=== PATIENT | female | born 1970 | race Caucasian/White ===

== ENCOUNTER → 2018-12-04 12:52 | Outpatient (CLI) | payer OTHER, SELFPAY ==
--- NOTE | 2018-12-04 12:54 | DI.RAD.S_ITS ---
PROCEDURE: XR RIBS RT MIN 3V W CXR 1V INDICATIONS: rib pain TECHNIQUE: 2 views of the right ribs were acquired, along with a single view chest. COMPARISON: None. FINDINGS: Surgical changes and devices: None. Bones and chest wall: Mildly displaced right fractures fourth, fifth and sixth rib fractures are noted. No suspicious bony lesions. Overlying soft tissues appear unremarkable. Lungs and pleura: No pleural effusions or pneumothorax. Lungs appear clear. Mediastinum: Mediastinal contours appear normal. Heart size is normal. IMPRESSION: Right fourth, fifth, and sixth rib fractures. Dictated by: Andrew Ye M.D. on 12/04/2018 at 13:27 Approved by: Andrew Ye M.D. on 12/04/2018 at 13:29
== END ==
PROVIDERS: Visit Provider Physician Assistant
DX: S22.41XA Multiple fractures of ribs, right side, initial encounter for closed fracture (principal); R07.81 Pleurodynia; W19.XXXA Unspecified fall, initial encounter
CPT/HCPCS: 71101

== ENCOUNTER 2018-12-08 02:04 | Emergency (ER) | payer OTHER, SELFPAY ==
--- NOTE | 2018-12-08 02:09 | ED.URI ---
HPI - URI/Sore Throat General Chief Complaint: Chest Pain Stated Complaint: Trouble Breathing Time Seen by Provider: 12/08/18 02:05 Source: patient and family Mode of arrival: ambulatory Limitations: no limitations History of Present Illness HPI Narrative: 48-year-old female nonsmoker history of anxiety, depression and gastric bypasspresents with nasal congestion, runny nose and cough with increasing pain in the setting of known rib fractures from a mechanical fall a few days ago. She tripped over her dog on Friday and landed on her right-sided ribs. She was seen at the walk-in clinic and had chest x-ray confirming 3 rib fractures. She denies any fever chills nor nausea or vomiting. She has a mild headache and denies sore throat or myalgias. Her rib pain has been worsening in the setting of this cough MD Complaint: cough Onset (ago): day(s) Duration: constant Severity: severe Exacerbating factors: nothing Able to tolerate fluids by mouth: Yes Related Data Home Medications Medication Instructions Recorded Confirmed albuterol sulfate [Proventil HFA] 2 puff INH PRN #8.5 gm 03/26/13 12/04/18 levothyroxine [Synthroid] 50 mcg PO QDAY #0 03/26/13 12/04/18 alprazolam 0.5 mg tablet 0.5 mg PO ONCE PRN tab 12/04/18 12/04/18 beclomethasone diprop 40 1 puff INHALATION Q12H 12/04/18 12/04/18 mcg/actuation HFA breath activated aerosol buspirone 7.5 mg tablet 7.5 mg PO BID 12/04/18 12/04/18 Previous Rx's Medication Instructions Recorded levalbuterol HCl [Xopenex] 1.25 mg INH Q6HP PRN #15 ea 09/10/16 citalopram [Celexa] 40 mg PO QDAY #90 tab 06/13/17 hydrocodone 5 mg-acetaminophen 325 1 tab PO Q4-6H PRN #30 tab 12/04/18 mg tablet benzonatate [Tessalon Perles] 100 mg PO TID PRN #14 cap 12/08/18 oxycodone 5 mg PO Q4-6H PRN #20 tab 12/08/18 Allergies Allergy/AdvReac Type Severity Reaction Status Date / Time Penicillins Allergy Severe Hives Verified 12/08/18 02:10 NSAIDS (Non-Steroidal AdvReac Mild Verified 12/08/18 02:10 Anti-Inflamma Review of Systems Review of Systems ROS Unobtainable: All systems reviewed & are unremarkable except as noted in HPI and below Constitutional Denies chills, Denies fever(s), Denies lethargy and Denies weakness Eyes Denies change in vision, Denies eye discharge, Denies irritation and Denies loss of vision ENT Ears, Nose, Mouth, and Throat: Denies change in voice, Denies neck pain and Denies sore throat Cardiovascular Reports chest pain, Denies irregular heart rhythm, Denies lightheadedness, Denies palpitations, Denies dyspnea, Denies dyspnea on exertion and Denies orthopnea Respiratory Reports cough, Reports pain on inspiration, Reports pain with cough, Denies dyspnea, Denies dyspnea on exertion and Denies wheezing Gastrointestinal Gastrointestinal: Denies abdominal pain, Denies change in bowel habits, Denies diarrhea, Denies nausea and Denies vomiting Genitourinary Denies hematuria, Denies flank pain, Denies urinary incontinence and Denies urinary urgency Musculoskeletal Denies neck pain Integumentary/Breasts Denies pruritus, Denies erythema, Denies rash and Denies wounds Neurologic Denies confusion, Denies loss of vision and Denies weakness Psychiatric Denies anxiety, Denies confusion, Denies depression, Denies homicidal ideation and Denies suicidal ideation Endocrine Denies palpitations Hematologic/Lymphatic Denies easy bruising Allergic/Immunologic Denies wheezing PFSH Social History Smoking Status: Never smoker Social History Smoking Status: Never smoker Exam Narrative Exam Narrative: GENERAL: 48-year-old female appears stated age, obviously in a significant amount of pain the leg, frequently coughing HEAD: Atraumatic. Normocephalic. No temporal or scalp tenderness. EYES: Pupils equal round and reactive. Extraocular motions intact. No scleral icterus. No injection or drainage. ENT: Nose without bleeding, purulent drainage or septal hematoma. Throat without erythema, tonsillar hypertrophy or exudate. Uvula midline. Airway patent. NECK: Trachea midline. No JVD or lymphadenopathy. Supple, nontender, no meningeal signs. CARDIOVASCULAR: Regular rate and rhythm without murmurs, gallops, or rubs. RESPIRATORY: Clear to auscultation. Breath sounds equal bilaterally. No wheezes, rales, or rhonchi. severe tenderness to palpation on right mid lateral ribs GASTROINTESTINAL: Abdomen soft, non-tender, nondistended. No hepato-splenomegaly, or palpable masses. No guarding. EXTREMITIES: No clubbing, cyanosis, or edema. No joint tenderness, effusion, or edema noted. BACK: Nontender without deformity or crepitance. No flank tenderness. NEURO: AOx3. SKIN: No rash or erythema. Initial Vital Signs Initial Vital Signs: Vital Signs Temperature 98.7 F 12/08/18 02:11 Pulse Rate 67 12/08/18 02:11 Respiratory Rate 20 12/08/18 02:11 Blood Pressure 130/73 12/08/18 02:11 Pulse Oximetry 100 12/08/18 02:11 Course Orders Ordered: ED Orders 12/08/18 02:19 XR chest 2V Stat 12/08/18 02:35 Influenza A and B by PCR Rapid Stat Discontinued Medications Ketorolac Tromethamine (Toradol) 60 mg IM NOW ONE Stop: 12/08/18 02:19 Last Admin: 12/08/18 02:23 Dose: 60 mg Oxycodone/Acetaminophen (Endocet 5/325 Prepack) 1 bottle MISC SEEINSTR ONE Stop: 12/08/18 03:18 Vital Signs - 8 hr 12/08/18 02:11 Temperature 98.7 F Pulse Rate 67 Respiratory Rate 20 Blood Pressure 130/73 Pulse Oximetry 100 MDM - URI/Sore Throat Differential Diagnosis Differential diagnosis: Likely influenza Lab Data Lab Results 12/08/18 Range/Units 02:35 Influenza A & B (PCR) Positive, type a A (Negative) Discharge Plan Departure Patient Disposition: Home Clinical Impression: Influenza A Multiple rib fractures Qualifiers: Encounter type: subsequent encounter Fracture type: closed Laterality: right Fracture healing: with routine healing Qualified Code(s): S22.41XD - Multiple fractures of ribs, right side, subsequent encounter for fracture with routine healing Instructions: DI for Rib Fracture, DI for Influenza -- Adult Activity Restrictions/Additional Instructions: *You have been diagnosed with [ the multiple right-sided rib fractures ] *What to do: *Take medications as directed. Your prescription has been sent to [facility] in [place] at your request *Follow up with your primary care provider in 2-3 days, call for an appointment. Let them know you were seen in the Emergency Department and that we ask that you be seen in follow up *Return to ER if you should have any new, worsening or concerning symptoms You have been prescribed narcotic medications. While on these medications you cannot drive or operate heavy machinery. Additionally you cannot sign legal documents or perform any duties such as this. 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 Please understand that we cannot provide further refills of narcotics or controlled substances through the ED and your pain management will need to be through your Primary Care Provider Prescriptions: New benzonatate [Tessalon Perles] 100 mg capsule 100 mg PO TID PRN (Reason: cough) Qty: 14 RF: 0 oxycodone 5 mg tablet 5 mg PO Q4-6H PRN (Reason: pain) Qty: 20 RF: 0 No Action alprazolam 0.5 mg tablet 0.5 mg PO ONCE PRNRF: 0 buspirone 7.5 mg tablet 7.5 mg PO BID RF: 0 Qvar RediHaler 40 mcg/actuation HFA aerosol breath activated 1 puff INHALATION Q12H RF: 0 hydrocodone-acetaminophen [Edelstein] 5-325 mg tablet 1 tab PO Q4-6H PRN (Reason: rib pain) Qty: 30 RF: 0 levothyroxine [Synthroid] 50 MCG tablet 50 mcg PO QDAY Qty: 0 RF: 0 albuterol sulfate [Proventil HFA] 90 MCG/PUFF HFA aerosol inhaler 2 puff INH PRN Qty: 8.5 RF: 0 levalbuterol HCl [Xopenex] 1.25 MG/3 ML solution for nebulization 1.25 mg INH Q6HP PRNQty: 15 RF: 0 citalopram [Celexa] 40 MG tablet 40 mg PO QDAY Qty: 90 RF: 2 Stand Alone Forms: Work Release Note
[2018-12-08 02:11] VITALS: BP 130/73; PULSE 67; RESP 20; TEMP 37.1; O2SAT 100; BMI 28.5
--- NOTE | 2018-12-08 02:19 | DI.RAD.S_ITS ---
PROCEDURE: XR CHEST 2V INDICATIONS: Shortness of breath, cough TECHNIQUE: 2 views of the chest were acquired. COMPARISON: None. FINDINGS: Surgical changes and devices: Multiple surgical clips at the GE junction.. Lungs and pleura: Diffusely coarse interstitial markings. Lungs are otherwise clear. No pleural effusions or pneumothorax. Mediastinum: Mediastinal contours are normal. Heart size is normal. Bones and chest wall: No suspicious bony abnormalities. Soft tissues appear unremarkable. IMPRESSION: Changes of mild emphysema. No focal pneumonia. Dictated by: Sona Hart M.D. on 12/08/2018 at 8:27 Approved by: Sona Hart M.D. on 12/08/2018 at 8:28
[2018-12-08] MEDS: KETOROLAC 60 MG/2 ML VIAL IM (02:23)
[2018-12-08] MEDS: OXYCODONE/APAP 5/325 PREPACK 1 BOTTLE MISC (03:27)
[2018-12-08 03:35] VITALS: BP 103/52; PULSE 64; RESP 16; TEMP 37.1; O2SAT 97
== END 2018-12-08 03:39 | disposition home or self-care (01) ==
PROVIDERS: Emergency Provider Emergency Medicine
DX: J10.1 Influenza due to other identified influenza virus with other respiratory manifestations (principal); S22.49XD Multiple fractures of ribs, unspecified side, subsequent encounter for fracture with routine healing
CPT/HCPCS: 71046; 87400; 99282; 99283; J1885

== ENCOUNTER 2019-05-28 09:14 | Emergency (ER) | payer OTHER, SELFPAY ==
[2019-05-28 09:15] VITALS: BP 139/71; PULSE 83; RESP 18; TEMP 36.8; O2SAT 100; BMI 30.5
[2019-05-28 10:00] VITALS: BP 105/52; PULSE 51; RESP 14; O2SAT 100
--- NOTE | 2019-05-28 11:31 | ED.RECABL ---
HPI - Recheck/Abnormal Lab/Rx <Sylvia ZhuARYAN - Last Filed: 05/28/19 23:34> General Chief Complaint: Recheck/Abnormal Lab/Rx Stated Complaint: concern about care recieve at [facility] Time Seen by Provider: 05/28/19 10:58 Source: patient Mode of arrival: ambulatory Limitations: no limitations History of Present Illness HPI narrative: 49-year-old female with a history of anxiety, depression, hypothyroidism, was recently seen at [facility] on 05/26/19 for the same, presents emergency department today complaining increased fatigue, intermittent confusion, ?brain fussiness, occasional forgetfulness, for the past 2 days after a recent fall. She states 2 days ago she slipped and fell backwards down 8 steps hitting her head against the wall, she denies LOC. She also complains of a constant 8/10 diffuse headache that is better when she takes oxycodone which he was given at [facility]. She states she does not remember much of the fall or much of the hospital visit but remembers having her roommate take her to [facility] where she received a CT scan of her head and neck as well as an x-ray of her right wrist and celia in her scalp. She states that she thinks she has a concussion but was not told the at that time. Denies any vision changes, hearing changes, facial droop, difficulty swallowing, vomiting, chest pain, shortness of breath, difficulty walking, or progressive worsening memory loss. She also states she has an appointment with her primary care provide next for follow-up. Related Data Home Medications Medication Instructions Recorded Confirmed levothyroxine [Synthroid] 50 mcg PO DAILY #0 03/26/13 05/28/19 buspirone 7.5 mg tablet 7.5 mg PO TID 12/04/18 05/28/19 alprazolam 0.5 - 1 mg PO DAILY PRN 05/28/19 05/28/19 citalopram [Celexa] 40 mg PO DAILY 05/28/19 05/28/19 ferrous sulfate 325 mg PO DAILY 05/28/19 05/28/19 oxycodone-acetaminophen 1 tab PO Q6-8H PRN 05/28/19 05/28/19 temazepam 30 mg PO BEDTIME PRN 05/28/19 05/28/19 Previous Rx's Medication Instructions Recorded oxycodone-acetaminophen 1 tab PO Q4-6H PRN #5 tab 05/28/19 Allergies Allergy/AdvReac Type Severity Reaction Status Date / Time Penicillins Allergy Severe Hives Verified 05/28/19 09:44 NSAIDS (Non-Steroidal AdvReac Mild Verified 05/28/19 09:44 Anti-Inflamma Review of Systems <ARYAN Soto - Last Filed: 05/28/19 23:34> Review of Systems Narrative: REVIEW OF SYSTEMS: GENERAL: Denies fever, chills, malaise, or wt. loss. HENT: No head trauma, hearing loss, rhinorrhea, epistaxis, sinus pressure, sore throat, or dysphagia. EYES: No loss of vision, double vision, eye pain, or irritation. CARDIOVASCULAR: No chest pain, palpitations, edema, syncope, or orthopnea. RESPIRATORY: No shortness of breath, cough, or wheeze. GASTROINTESTINAL: No change in appetite, nausea, vomiting, stool changes, or melena. GENITOURINARY: No flank pain, urinary incontinence, hesitancy, frequency, or dysuria. No vaginal discharge or dyspareunia. MUSCULOSKELETAL: No pain, weakness, or deformities. INTEGUMENTARY: No rash, lesions, or pruritus. NEURO: No numbness, or tingling. Patient reports headaches and memory loss, see HPI. PSYCH: No behavior or mood changes. HEMATOLOGY: No easy bruising. LYMPHATIC: No lymphadenopathy. PFSH <ARYAN Soto - Last Filed: 05/28/19 23:34> Medical History Generalized anxiety disorder (Acute) Social History Smoking Status: Never smoker Social History Smoking Status: Never smoker Exam <ARYAN Soto - Last Filed: 05/28/19 23:34> Initial Vital Signs Initial Vital Signs: Vital Signs Temperature 98.2 F 05/28/19 09:15 Pulse Rate 83 05/28/19 09:15 Respiratory Rate 18 05/28/19 09:15 Blood Pressure 139/71 05/28/19 09:15 Pulse Oximetry 100 05/28/19 09:15 PHYSICAL EXAMINATION: GENERAL: Well groomed, alert, and cooperative Answers questions promptly and appropriately. Vital signs noted. HENT: Normocephalic, atraumatic. [place] visualized to left side of parietal scalp, no erythema present. Right-sided hematoma present, tenderness with palpation. Oral mucosa is pink and moist, no caries or lesions present. Pharynx without erythema. EYES: PERRLA, EOMIs, conjunctiva pink, sclera white, no periorbital swelling. NECK: Full range of motion, nontender. LYMPH: No lymphadenopathy. CHEST: Normal to inspection and without deformities. CARDIOVASCULAR: S1 and S2 sounds normal. Regular rate and rhythm, no murmurs, clicks, or bruits. No pedal edema. RESPIRATORY: Normal respiratory rate, trachea midline, airway patent. No stridor, nasal flaring or accessory muscle use. Lungs are clear in all fall without wheeze, rhonchi, or crackles. GASTROINTESTINAL: Bowel sounds normoactive. Abdomen is soft and non-tender. No organomegaly. MUSCULOSKELETAL: Normal gait and coordination. Equal tone and mass bilaterally. No spinal tenderness or deformities. EXTREMITIES: CMS intact. Full range of motion and 5/5 strength to upper and lower extremities SKIN: Warm, dry, soft, appropriate color for ethnicity. No lesions, rashes, or wounds. NEURO: Alert and Oriented X 3. CN III-XII intact. Good coordination. No ataxia, or sensory deficits, or cognitive issues. PSYCH: Appropriate affect and mood. <Reena Patiño MD - Last Filed: 05/31/19 00:51> Initial Vital Signs Initial Vital Signs: Vital Signs Temperature 98.2 F 05/28/19 09:15 Pulse Rate 83 05/28/19 09:15 Respiratory Rate 18 05/28/19 09:15 Blood Pressure 139/71 05/28/19 09:15 Pulse Oximetry 100 05/28/19 09:15 Scores <ARYAN Soto - Last Filed: 05/28/19 23:34> NIH Stroke Scale Level of Conciousness: Alert, keenly responsive Ask month/age: Answers both questions correctly. Open/close eyes, close hand: Performs both tasks correctly Best gaze horizontal: Normal Visual fall: No visual loss Facial palsy: Normal symetrical movement Left arm drift: No drift for full 10 sec Right arm drift: No drift for full 10 sec Left leg drift: No drift for full 10 sec Right leg drift: No drift for full 10 sec Limb ataxia: Absent Sensory on face/arms/legs: Normal, no sensory loss Best language: No aphasia, normal Dysarthria: Normal Extinction or inattention: No abnormality Total NIH Stroke scale score: 0 Course <ARYAN Soto - Last Filed: 05/28/19 23:34> Course Course Narrative: Records were reviewed from [facility] for patient's emergency department visit on 05/26/19. Record reports were as follows: CT head impression: Mild chronic sinus disease. Otherwise, normal CT of the brain without contrast. CT cervical spine without contrast impression: No acute cervical spine abnormality. Degenerative disc disease, especially C5-C6, with mild left foraminal stenosis. Right wrist x-ray impression: No acute fracture or dislocation seen. There appears to be resection of trapezium. During the visit patient's neuro exam was noted to be intact without deficiencies. Celia were placed to the wound in her scalp. She was given oxycodone and instructed to follow up with her primary care provider in 7-10 days. She was diagnosed with a fall, scalp laceration, and sprain of the right wrist. Orders Ordered: Discontinued Medications Sodium Chloride (Normal Saline 0.9%) 1,000 mls @ 1,000 mls/hr IV BOLUS ONE Stop: 05/28/19 11:24 Last Admin: 05/28/19 10:27 Dose: Not Given Documented by: MAGALY Ketorolac Tromethamine (Toradol) 30 mg IM NOW ONE Stop: 05/28/19 11:29 Last Admin: 05/28/19 11:37 Dose: 30 mg Documented by: ONEL Vital Signs Vital signs: Vital Signs - 8 hr 05/28/19 09:15 05/28/19 10:00 05/28/19 12:08 Temperature 98.2 F Pulse Rate 83 51 L 64 Respiratory Rate 18 14 16 Blood Pressure 139/71 Blood Pressure [Left Arm] 105/52 L 98/48 L Pulse Oximetry 100 100 100 <Reena Patiño MD - Last Filed: 05/31/19 00:51> Orders Ordered: Discontinued Medications Sodium Chloride (Normal Saline 0.9%) 1,000 mls @ 1,000 mls/hr IV BOLUS ONE Stop: 05/28/19 11:24 Last Admin: 05/28/19 10:27 Dose: Not Given Documented by: MAGALY Ketorolac Tromethamine (Toradol) 30 mg IM NOW ONE Stop: 05/28/19 11:29 Last Admin: 05/28/19 11:37 Dose: 30 mg Documented by: ONEL Vital Signs Vital signs: Vital Signs - 8 hr 05/28/19 09:15 05/28/19 10:00 05/28/19 12:08 Temperature 98.2 F Pulse Rate 83 51 L 64 Respiratory Rate 18 14 16 Blood Pressure 139/71 Blood Pressure [Left Arm] 105/52 L 98/48 L Pulse Oximetry 100 100 100 MDM - Recheck/Abnormal Lab/Rx <ARYAN Soto - Last Filed: 05/28/19 23:34> Medical Records Attestation: I reviewed the patient's medical records. Lab Data Attestation: I reviewed the patient's lab results. MDM Narrative Medical decision making narrative: Differential includes concussion (most likely due to symptoms and mechanism of fall), cranial hemorrhage (less likely due to negative CT that was done 2 days ago, patient reports slow but progressive resolution of symptoms), alteration mental status due to narcotic (patient has been taking oxycodone for her headaches), stroke/TIA (less likely due to recent injury, and NIH score of 0, lack of concerning symptoms such as facial droop or complains of numbness). Strict return precautions given and follow-up instructions discussed. Discharge Plan Departure Patient Disposition: Home Clinical Impression: Concussion Qualifiers: Encounter type: subsequent encounter Loss of consciousness presence/duration: without LOC Qualified Code(s): S06.0X0D - Concussion without loss of consciousness, subsequent encounter Fall Qualifiers: Encounter type: initial encounter Qualified Code(s): W19.XXXA - Unspecified fall, initial encounter Discharge Date/Time: 05/28/19 12:21 Instructions: DI for Concussion, How to Prevent Falls Activity Restrictions/Additional Instructions: Your neurological exam was negative for any concerning findings. However, it appears that you are suffering from a concussion from your fall. I reviewed your records from [facility] and the CT scans of your head and neck did not show any fractures or bleeding in the brain Additionally, your right wrist x-ray was negative for fractures. I recommend brain rest for the next week (meaning no rigorous activity, minute amount of television, and cessation of activities that provoke symptoms). Please follow up with your primary care provider as scheduled on for removal of your celia and for recheck of her symptoms. I have given you a small amount of pain medication, please do not take this longer than you need as it can contribute to your symptoms. Return to the emergency department if he develops uncontrollable vomiting, facial droop, vision changes, difficulty swallowing, slurred speech, loss of consciousness, sudden and extreme a new headaches, chest pain, or shortness of breath. Prescriptions: New oxycodone-acetaminophen 5-325 mg tablet 1 tab PO Q4-6H PRN (Reason: pain) Qty: 5 RF: 0 No Action buspirone 7.5 mg tablet 7.5 mg PO TID RF: 0 levothyroxine [Synthroid] 50 MCG tablet 50 mcg PO DAILY Qty: 0 RF: 0 alprazolam 0.5 mg tablet 0.5 - 1 mg PO DAILY PRN (Reason: Anxiety) RF: 0 oxycodone-acetaminophen 5-325 mg tablet 1 tab PO Q6-8H PRN (Reason: pain) RF: 0 temazepam 30 mg capsule 30 mg PO BEDTIME PRN (Reason: Sleep) RF: 0 ferrous sulfate 325 mg (65 mg iron) tablet 325 mg PO DAILY RF: 0 citalopram [Celexa] 40 MG tablet 40 mg PO DAILY RF: 0 Referrals: Octavio Johnson MD [Primary Care Provider] - Stand Alone Forms: Work Release Note
[2019-05-28] MEDS: KETOROLAC 60 MG/2 ML VIAL 30 MG IM (11:37)
[2019-05-28 12:08] VITALS: BP 98/48; PULSE 64; RESP 16; O2SAT 100
== END 2019-05-28 12:21 | disposition home or self-care (01) ==
PROVIDERS: Emergency Provider Nurse Practitioner; PCP Internal Medicine
DX: S06.0X0D Concussion without loss of consciousness, subsequent encounter (principal); W19.XXXA Unspecified fall, initial encounter
CPT/HCPCS: 96372; 99282; 99283; J1885

== ENCOUNTER 2020-03-01 13:16 | Emergency (ER) | payer OTHER, SELFPAY ==
[2020-03-01 13:20] VITALS: BP 129/57; PULSE 76; RESP 18; O2SAT 97
[2020-03-01 13:25] VITALS: BP 129/57; PULSE 76; RESP 16; TEMP 36.6; O2SAT 99
[2020-03-01 13:32] VITALS: BP 129/57; PULSE 77; RESP 20; O2SAT 98; BMI 28.3
--- NOTE | 2020-03-01 14:03 | ED_ITS ---
HPI - Extremity Injury (Lower) <Sylvia ZhuARYAN - Last Filed: 03/01/20 21:22> General Chief Complaint: Extremity Injury, Lower Stated Complaint: left knee injury x9 days Time Seen by Provider: 03/01/20 13:21 Source: patient Mode of arrival: Ambulatory History of Present Illness HPI Narrative: 50-year-old female with a history of knee osteoarthritis presents emergency department complaining of left medial knee pain. She states she was hiking approximately 9 days ago after the hike she developed worsening left- sided knee pain and swelling. Patient states that she gets steroid injections in urine use as well as her SI joint for arthritis which have helped. She does not remember falling or twisting the knee, does not remember any specific incident that caused an increase in pain other than her knee started to hurt later on that day after her. Patient states the pain is a sharp stabbing pain that is worse with weight-bearing and palpation to the medial aspect of the joint, reports a small amount of swelling without redness or significant erythema. Patient states she is able to bend her knee but has been backed partial weight-bearing due to the pain. Patient denies any other injuries such as head injury, neck pain, hip pain, ankle pain, calf pain, history of blood clots, nausea, vomiting, diarrhea, or any other concerns. Related Data Home Medications Medication Instructions Recorded Confirmed levothyroxine [Synthroid] 50 mcg PO DAILY #0 03/26/13 05/28/19 buspirone 7.5 mg tablet 7.5 mg PO TID 12/04/18 05/28/19 alprazolam 0.5 - 1 mg PO DAILY PRN 05/28/19 05/28/19 citalopram [Celexa] 40 mg PO DAILY 05/28/19 05/28/19 ferrous sulfate 325 mg PO DAILY 05/28/19 05/28/19 oxycodone-acetaminophen 1 tab PO Q6-8H PRN 05/28/19 05/28/19 temazepam 30 mg PO BEDTIME PRN 05/28/19 05/28/19 Previous Rx's Medication Instructions Recorded oxycodone-acetaminophen 1 tab PO Q4-6H PRN #5 tab 05/28/19 Allergies Allergy/AdvReac Type Severity Reaction Status Date / Time Penicillins Allergy Severe Hives Verified 03/01/20 13:40 NSAIDS (Non-Steroidal AdvReac Mild Verified 03/01/20 13:40 Anti-Inflamma Review of Systems <ARYAN Soto - Last Filed: 03/01/20 21:22> Review of Systems Narrative: REVIEW OF SYSTEMS: GENERAL: Denies fever or chills. HENT: No head trauma. EYES: No double vision or vision loss. CARDIOVASCULAR: No chest pain or syncope. RESPIRATORY: No shortness of breath or cough. GASTROINTESTINAL: No nausea, vomiting, diarrhea, or constipation. GENITOURINARY: No flank pain or dysuria. MUSCULOSKELETAL: Complains of left knee pain, see HPI. INTEGUMENTARY: No rash, lesions, or pruritus. NEURO: No numbness, tingling. Patient History <ARYAN Soto - Last Filed: 03/01/20 21:22> Medical History Generalized anxiety disorder (Acute) Social History Smoking Status: Never smoker Smoking Status: Never smoker alcohol intake frequency: 0-2 drinks per day Substance Use Type: does not use Exam <ARYAN Soto - Last Filed: 03/01/20 21:22> Initial Vital Signs Initial Vital Signs: Vital Signs Pulse Rate 76 03/01/20 13:20 Respiratory Rate 18 03/01/20 13:20 Blood Pressure 129/57 L 03/01/20 13:20 Pulse Oximetry 97 03/01/20 13:20 PHYSICAL EXAMINATION: GENERAL: Well groomed, alert, and cooperative. Answers questions promptly and appropriately. Vital signs noted. HENT: Normocephalic, atraumatic. EYES: Symmetrical, sclera white, no periorbital swelling. CARDIOVASCULAR: S1 and S2 sounds normal. Regular rate and rhythm, no murmurs, clicks, or bruits. RESPIRATORY: Normal respiratory rate, trachea midline, airway patent. No stridor, nasal flaring or accessory muscle use. MUSCULOSKELETAL: Tenderness to left medial joint line, small amount of swelling to this area.. Negative drawer test, positive Santy's test while testing left medial meniscus. Over 90? of flexion, full extension. No significant erythema or increased warmth. No bruising. EXTREMITIES: CMS intact. . SKIN: Warm, dry, soft, appropriate color for ethnicity. No lesions, rashes, or wounds. NEURO: Alert and Oriented X 3. No sensory deficits. PSYCH: Appropriate affect and mood. <Hardik De La Torre DO - Last Filed: 03/02/20 07:09> Initial Vital Signs Initial Vital Signs: Vital Signs Pulse Rate 76 03/01/20 13:20 Respiratory Rate 18 03/01/20 13:20 Blood Pressure 129/57 L 03/01/20 13:20 Pulse Oximetry 97 03/01/20 13:20 Course <ARYAN Soto - Last Filed: 03/01/20 21:22> Course Course Narrative: Patient given crutches and knee brace to help with pain instability. Vital Signs Vital signs: Vital Signs - 8 hr 03/01/20 13:25 03/01/20 13:32 03/01/20 14:21 Temperature 97.8 F Pulse Rate 76 77 83 Respiratory Rate 16 20 18 Blood Pressure 129/57 L Blood Pressure [Left Arm] 129/57 L 102/55 L Pulse Oximetry 99 98 96 <Hardik De La Torre DO - Last Filed: 03/02/20 07:09> Vital Signs Vital signs: Vital Signs - 8 hr 03/01/20 13:25 03/01/20 13:32 03/01/20 14:21 Temperature 97.8 F Pulse Rate 76 77 83 Respiratory Rate 16 20 18 Blood Pressure 129/57 L Blood Pressure [Left Arm] 129/57 L 102/55 L Pulse Oximetry 99 98 96 MDM - Extremity Injury (Lower) <ARYAN Soto - Last Filed: 03/01/20 21:22> Medical Records Attestation: I reviewed the patient's medical records. Lab Data Attestation: I reviewed the patient's lab results. MDM Narrative Medical decision making narrative: 50-year-old female presents emergency department for left medial knee pain without known injury. Differential includes arthritis exasperation versus sprain versus medial meniscus injury. I suspect this may be related to both arthritis and medial meniscus injury due to location of pain, instability, swelling, and patient did later report she has a job that requires lots of bending and twisting. We discussed due to lack of trauma there is very little suspicion for a fracture never x-rays would not help with diagnoses. Patient was given a brace and crutches, she was encouraged to use the knee as much as possible but refrain from doing activities that cause a lot of pain. Patient was encouraged to purchase a hinged knee brace to keep range of motion intact. She is referred to an orthopedic for further evaluation. Patient agreed to plan of care verbalized understanding. Discharge Plan Departure Patient Disposition: Home Clinical Impression: Internal derangement of knee Qualifiers: Laterality: left Qualified Code(s): M23.92 - Unspecified internal derangement of left knee Discharge Date/Time: 03/01/20 14:22 Instructions: DI for Meniscal Tear Activity Restrictions/Additional Instructions: Thank you for entrusting me with your care today. As discussed, I suspect your knee pain is most likely caused by meniscus injury. We discussed that x-rays would not help determine this diagnosis that follow-up with an orthopedic was important. I referred you to the orthopedic below, please call their office as soon as possible to schedule an appointment. I suggest using rest, ice, and a hinged knee brace to help with pain instability. You may use crutches as needed if complete weight-bearing causes pain. Return emergency department for any new or worsening symptoms such as severe pain, high fevers, redness, uncontrollable vomiting, or any other concerns. Prescriptions: No Action buspirone 7.5 mg tablet 7.5 mg PO TID RF: 0 levothyroxine [Synthroid] 50 MCG tablet 50 mcg PO DAILY Qty: 0 RF: 0 alprazolam 0.5 mg tablet 0.5 - 1 mg PO DAILY PRN (Reason: Anxiety) RF: 0 oxycodone-acetaminophen 5-325 mg tablet 1 tab PO Q6-8H PRN (Reason: pain) RF: 0 temazepam 30 mg capsule 30 mg PO BEDTIME PRN (Reason: Sleep) RF: 0 ferrous sulfate 325 mg (65 mg iron) tablet 325 mg PO DAILY RF: 0 citalopram [Celexa] 40 MG tablet 40 mg PO DAILY RF: 0 oxycodone-acetaminophen 5-325 mg tablet 1 tab PO Q4-6H PRN (Reason: pain) Qty: 5 RF: 0 Referrals: Octavio Johnson MD [Primary Care Provider] - Nasir Mai MD [Physician] - <Hardik Lanker, DO - Last Filed: 03/02/20 07:09> Cosign ED Attending Cosignature Attestation: Dr De La Torre Co-Sign Statement: I was available for consultation during this patient's emergency department visit. This chart is signed by myself for administrative purposes only. I did not have direct contact with this patient during this visit. They were seen independently by the APC.
[2020-03-01 14:21] VITALS: BP 102/55; PULSE 83; RESP 18; O2SAT 96
== END 2020-03-01 14:22 | disposition home or self-care (01) ==
PROVIDERS: Emergency Provider Nurse Practitioner; PCP Internal Medicine
DX: M17.10 Unilateral primary osteoarthritis, unspecified knee (principal); M23.92 Unspecified internal derangement of left knee
CPT/HCPCS: 99281; 99283

== ENCOUNTER → 2020-09-15 14:47 | Outpatient (CLI) | payer OTHER, SELFPAY ==
[2020-09-15 15:24] LABS: COVID19 -Nasal RAPID Negative (Negative)
== END ==
PROVIDERS: PCP Internal Medicine; Visit Provider Obstetrics & Gynecology
DX: Z01.812 Encounter for preprocedural laboratory examination (principal); Z20.828 Contact with and (suspected) exposure to other viral communicable diseases
CPT/HCPCS: 87635

== ENCOUNTER 2020-09-18 08:25 | Day surgery (SDC) | payer OTHER, SELFPAY ==
[2020-09-14 10:55] VITALS: BMI 31.7
[2020-09-18] VITALS (7 sets, daily range): BP systolic 106–126; BP diastolic 43–71; PULSE 60–75; RESP 12–20; TEMP 36.1–36.3; O2SAT 96–99; BMI 31.7
[2020-09-18] MEDS: ACETAMINOPHEN 325 MG TABLET 975 MG PO (08:51)
[2020-09-18] MEDS: LACTATED RINGERS 1,000 ML 42 ML IV (08:51)
[2020-09-18] MEDS: SCOPOLAMINE 1 PATCH TOP (08:51)
--- NOTE | 2020-09-18 09:17 | PM.PREOP ---
Pre-operative Note COVID-19 COVID-19 status: Negative Result date/Date tested (Pos, Neg/Pending): 09/15/20 Interval Note History & Physical reviewed/Exam performed by Physician: Yes Changes to H&P: No
[2020-09-18] MEDS: CLINDAMYCIN 900 MG/50 ML PIGGYBACK 50 MG IV (10:04)
--- NOTE | 2020-09-18 10:19 | SUR.OPER ---
Lithotomy on padded OR bed, head on pillow, arms secured on padded arm boards at <90 degrees abduction. Legs secured in padded yellow fins stirrups.
[2020-09-18] MEDS: BUPIVACAINE 0.5% W/ EPI (PF) 30 ML VIAL INJ (10:24)
[2020-09-18] MEDS: BACITRACIN 28 GM OINT 1 APPLIC TOP (10:32)
--- NOTE | 2020-09-18 10:50 | P.OP_ITS ---
Operative Date/Time/Diagnoses Date of procedure: 09/18/20 Time of procedure: 10:10 Pre-op diagnosis: Hypertrophy of labia minora Post-op diagnosis: same Procedure & Clinicians Procedure: Bilateral labia plasty Same procedure as scheduled: Yes Indications: Hypertrophied labia minora Surgeon: Khadijah Ferrara Financial Reporting Accountant: Abiola Murray Anesthesia Type: General Operative Notes Findings: Otherwise normal vulva and vagina, no discrete lesions. Closure Type: primary Specimen(s): none sent Estimated Blood Loss (mL): 10 Procedure in detail: After informed consent was obtained, the patient was taken to the operating room and prepped and draped in the dorsal lithotomy position. The previously identified labial hypertrophy was noted, and a sterile marker was used to monica a planned curvilinear incision on both labia minora, amputating the outer 2 cm of labia. Each labia was infiltrated with 5 cc of 0.5% bupivacaine. Attention was turned to the right labia, where the previously marked incision was cut with Metzenbaum scissors. Hemostasis was achieved with the Bovie were necessary, in the front and back surfaces of the labia were oversewn with 3-0 chromic in an interrupted fashion. Attention was turned to the left labia minora, where the same procedure was performed without incident. Good hemostasis was achieved, and there were no intraoperative complications. The patient was taken to PACU in stable condition after bacitracin was applied to the area. 900 mg of clindamycin were administered prior to the case given the patient's penicillin allergy. The patient's has a history of vasectomy and the patient denied any possibility of , and test was not performed. IVF: 650ccs EBL: minimal UOP: NA Complications: none Post-operative Condition: stable Disposition: PACU Plan for aftercare: Routine postoperative care
== END 2020-09-18 11:28 | disposition home or self-care (01) ==
PROVIDERS: PCP Internal Medicine; Referring Provider Internal Medicine; Visit Provider Obstetrics & Gynecology
PROC: (CPT 56620; principal; 2020-09-18 09:45)
DX: N90.69 Other specified hypertrophy of vulva (principal); F41.9 Anxiety disorder, unspecified
CPT/HCPCS: 56620; 81025; 82962; J1100; J1885; J2250; J2405; J2704; J3010

== ENCOUNTER → 2020-09-23 09:52 | Outpatient (CLI) | payer OTHER, SELFPAY ==
[2020-09-23 11:35] LABS: COVID19 -Nasal RAPID Negative (Negative)
== END ==
PROVIDERS: PCP Internal Medicine; Visit Provider Nurse Practitioner
DX: R06.02 Shortness of breath (principal); R19.7 Diarrhea, unspecified; R50.9 Fever, unspecified; R51.9 Headache, unspecified; R53.83 Other fatigue
CPT/HCPCS: 87635

== ENCOUNTER 2025-09-26 09:52 | Emergency (ER) | payer OTHER, SELFPAY ==
--- OUTSIDE RECORDS SUMMARY | 2025-09-26 09:55 | XMS_ITS | Encounter Summary ---
Author Organization [facility] Address [address] [place] [id number] Care Team Providers Care Plisse Machine Operator Name Role Phone Sarbjit Spann III Primary Care Provider Octavio Jackson Primary Care Provider [phone] Reason for Referral * Outpatient Service (Routine) - Authorized Specialty Diagnoses / Procedures Referred By Evan romero Referred To Contact Dermatology Diagnoses Facial rash Procedures REF DERMATOLOGY-EXTERNAL OFFICE/OUTPATIENT ESTABLISHED MOD MDM 30 MIN Sarbjit Spann III [facility] [address] [place] [address] [facility] [address] [place] [address] Referral ID Status Reason Start Date Expiration Date Visits Requested Visits Authorized [id number] Authorized Evaluate and Treat-Surgery if Indicated 07/07/2024 07/07/2025 6 6 * Outpatient Service (Routine) - Authorized Specialty Diagnoses / Procedures Referred By Evan romero Referred To Contact Obstetrics/Gynecolog y Diagnoses Hormone replacement therapy Procedures REF TABLET COATER - EXTERNAL OFFICE/OUTPATIENT ESTABLISHED MOD [facility] 30 MIN Sarbjit Spann III [facility] [address] [place] [address] [facility] [address] [address] [place] [address] Referral ID Status Reason Start Date Expiration Date Visits Requested Visits Authorized [id number] Authorized Evaluate and Treat-Surgery if Indicated 07/07/2024 07/07/2025 6 6 Encounter Details Date Type Department Care Team (Late st Contact Info) Description 07/07/2024 Community Orders Non [facility] Provider Sarbjit Spann III [facility] [address] [address] [place] [id number] Hormone replacement therapy (Primary Dx); Facial rash Social History Tobacco Use Types Packs/Day Years Used Date Smoking Tobacco: Never Assessed Comments Unknown Sex and Gender Information Value Date Recorded Sex Assigned at Not on file Legal Sex Female 9:41 PM PST Gender Identity Not on file Sexual Orientation Not on file documented as of this encounter Plan of Treatment Not on file documented as of this encounter Visit Diagnoses Diagnosis Hormone replacement therapy- Primary Facial rash Rash and other nonspecific skin eruption documented in this encounter Care Teams Plisse Machine Operator Relationship Specialty Start Date End Date Sarbjit Spann III [facility] [address] [place] [address] PCP - General 05/21/24 02/13/25 Octavio Johnson [facility] [address] [place] [address] PCP - General 02/14/25 documented as of this encounter
[2025-09-26 10:06] VITALS: BP 133/61; PULSE 71; O2SAT 99
--- NOTE | 2025-09-26 10:15 | EKG_ITS ---
[facility] [address] [place] [address] Test Date: 2025-09-26 Pat Name: Alvin Hauser Department: Room: Gender: Female Art Director: ALFRED : 1970 Requested By: Order Number: [id number] Reading MD: Kiran Cast Measurements Intervals Lawrence Rate: 58 P: 49 PA: 120 QRS: 77 QRSD: 98 T: 83 QT: 400 QTc: 392 Interpretive Statements Sinus bradycardia Nonspecific ST and T wave abnormality Electronically Signed On 09-26-2025 10:44:40 PST by Kiran Cast
[2025-09-26 10:24] VITALS: BP 133/60; PULSE 76; RESP 17; TEMP 36.5; O2SAT 100; BMI 20.5
[2025-09-26 10:30] VITALS: BP 108/57; PULSE 61; RESP 20; O2SAT 99
--- NOTE | 2025-09-26 10:55 | ED.CHESTPAIN ---
HPI - Chest Pain General Chief Complaint: Chest Pain Stated Complaint: Right side rib/chest pain 5 days Source: patient Mode of arrival: Family Vehicle Limitations: no limitations Related Data Home Medications ?Medication ?Instructions ?Recorded ?Confirmed levothyroxine 50 mcg tablet 50 mcg PO DAILY ##0 03/26/13 10/23/20 (Synthroid) buspirone 7.5 mg tablet 7.5 mg PO TID 12/04/18 10/23/20 alprazolam 0.5 mg tablet 0.5 - 1 mg PO DAILY PRN Anxiety 05/28/19 10/23/20 citalopram 40 mg tablet (Celexa) 40 mg PO DAILY 05/28/19 10/23/20 ferrous sulfate 325 mg (65 mg 325 mg PO DAILY 05/28/19 10/23/20 iron) tablet albuterol sulfate 90 mcg/actuation 2 puff inhalation Q6H PRN 08/31/20 10/23/20 aerosol inhaler (ProAir HFA) Shortness Of Breath Allergies Allergy/AdvReac Type Severity Reaction Status Date / Time Penicillins Allergy Severe Hives Verified 09/26/25 10:23 NSAIDS (Non-Steroidal AdvReac Mild Verified 09/26/25 10:23 Anti-Inflamma Patient History Medical History Generalized anxiety disorder Surgical History History of endometrial ablation Social History household members: spouse Smoking Status: Never smoker alcohol intake: current Smoking Status: Never smoker alcohol intake frequency: 0-2 drinks per day Exam Initial Vital Signs Initial Vital Signs: Vital Signs Temperature 97.7 F 09/26/25 10:24 Pulse Rate 76 09/26/25 10:24 Respiratory Rate 17 09/26/25 10:24 Blood Pressure 133/60 09/26/25 10:24 Pulse Oximetry 100 09/26/25 10:24 Oxygen Delivery Method Room Air 09/26/25 10:24 Course Orders Ordered: ED Orders 09/26/25 10:15 EKG-12 Lead Stat Vital Signs Vital signs: Vital Signs - 8 hr 09/26/25 10:24 Temperature 97.7 F Pulse Rate 76 Respiratory Rate 17 Blood Pressure 133/60 Pulse Oximetry 100 Oxygen Delivery Method Room Air Discharge Plan Departure Prescriptions: No Action buspirone 7.5 mg tablet 7.5 mg PO TID levothyroxine [Synthroid] 50 MCG tablet 50 mcg PO DAILY Qty: 0 albuterol sulfate [ProAir HFA] 90 mcg/actuation HFA aerosol inhaler 2 puff inhalation Q6H PRN (Reason: Shortness Of Breath) alprazolam 0.5 mg tablet 0.5 - 1 mg PO DAILY PRN (Reason: Anxiety) Patient Comments: TK 1 TO 2 TS PO QD PRN ferrous sulfate 325 mg (65 mg iron) tablet 325 mg PO DAILY Patient Comments: TK 1 T PO QD citalopram [Celexa] 40 MG tablet 40 mg PO DAILY Referrals: Octavio Johnson MD [Primary Care Provider, Internal Medicine]
--- NOTE | 2025-09-26 10:57 | DI.RAD.S_ITS ---
PROCEDURE: XR RIBS RT MIN 3V W CXR 1V INDICATIONS: pain TECHNIQUE: 2 views of the ribs were acquired, along with a single view chest. COMPARISON: None. FINDINGS: Surgical changes and devices: None. Bones and chest wall: There is possible nondisplaced fracture of the lateral right 4th, 5th, and 6th ribs. No suspicious bony lesions. Overlying soft tissues appear unremarkable. Lungs and pleura: No pleural effusions or pneumothorax. Lungs appear clear. Mediastinum: Mediastinal contours appear normal. Heart size is normal. IMPRESSION: Query nondisplaced 4th through 6th lateral right rib fractures. Correlate with point tenderness. Approved by: Crystal Yuen M.D.,Ph.D. on 09/26/2025 at 11:34
[2025-09-26 11:00] VITALS: BP 130/68; PULSE 58; RESP 19; O2SAT 100
--- NOTE | 2025-09-26 11:06 | ED.CHESTPAIN ---
HPI - Chest Pain <Elaine Mullins PA-C - Last Filed: 09/26/25 12:34> General Chief Complaint: Chest Pain Stated Complaint: Right side rib/chest pain 5 days Time Seen by Provider: 09/26/25 11:05 Source: patient Mode of arrival: Family Vehicle Limitations: no limitations History of Present Illness HPI narrative: Ms. Hauser is a very pleasant 55-year-old female with a past medical history of asthma, hypothyroidism, gastric bypass, GERD who presents to the emergency department for right-sided rib/chest pain x 5 days. Patient states that 5 days ago she was holding her 4-year-old granddaughter/niece who was having a tantrum and was thrashing/kicking/biting her. She developed acute pain of the right side of her sternum/chest in heard/felt a popping sound. Since then she has had persistent right-sided chest wall pain radiating to the back. Pain is worse with movement, palpation, coughing and deep breathing. States that she has broken ribs in the past and this feels similar. She denies left-sided chest pain, abdominal pain, fevers, chills, coughing, flu-like symptoms, abdominal pain, nausea, vomiting, diarrhea. She was taking hydrocodone which helped with the pain however she ran out of this she did take a few Motrin as well. Related Data Home Medications ?Medication ?Instructions ?Recorded ?Confirmed levothyroxine 50 mcg tablet 50 mcg PO DAILY ##0 03/26/13 09/27/25 (Synthroid) buspirone 7.5 mg tablet 7.5 mg PO TID 12/04/18 09/27/25 alprazolam 0.5 mg tablet 0.5 - 1 mg PO DAILY PRN Anxiety 05/28/19 09/27/25 citalopram 40 mg tablet (Celexa) 40 mg PO DAILY 05/28/19 09/27/25 ferrous sulfate 325 mg (65 mg 325 mg PO DAILY 05/28/19 09/27/25 iron) tablet albuterol sulfate 90 mcg/actuation 2 puff inhalation Q6H PRN 08/31/20 09/27/25 aerosol inhaler (ProAir HFA) Shortness Of Breath Previous Rx's ?Medication ?Instructions ?Recorded hydrocodone 5 mg-acetaminophen 325 1 tab PO Q4-6H PRN pain #12 tabs 09/26/25 mg tablet Allergies Allergy/AdvReac Type Severity Reaction Status Date / Time Penicillins Allergy Severe Hives Verified 09/27/25 07:53 NSAIDS (Non-Steroidal AdvReac Mild Verified 09/27/25 07:53 Anti-Inflamma Review of Systems <Elaine Mullins PA-C - Last Filed: 09/26/25 12:34> Review of Systems ROS Unobtainable: All systems reviewed & are unremarkable except as noted in HPI and below Patient History <Elaine Mullins PA-C - Last Filed: 09/26/25 12:34> Medical History Generalized anxiety disorder Surgical History History of endometrial ablation Social History household members: spouse alcohol intake: current Smoking Status: Never smoker alcohol intake frequency: 0-2 drinks per day Exam <Elaine Mullins PA-C - Last Filed: 09/26/25 12:34> Narrative Exam Narrative: GENERAL: 55 year old patient appears stated age. Well-developed patient, in no acute distress. HEAD: Atraumatic. Normocephalic. EYES: No scleral icterus. No injection or drainage. NECK: Trachea midline. Cervical ROM intact. CARDIOVASCULAR: Regular rate and rhythm. CHEST WALL: Patient has tenderness to palpation of the ribs and intercostal spaces on the anterior right side of the chest wall around ribs 3 through 6. No crepitus, skin changes, ecchymosis or edema. RESPIRATORY: ?Nonlabored respirations. ?Speaking in clear, full sentences. ?Clear to auscultation. Breath sounds equal bilaterally. No wheezes, rales, or rhonchi. ? GASTROINTESTINAL: Abdomen soft, non-tender, nondistended. NEURO: AOx3. ?Clear speech. ?Moves all 4 extremities appropriately. SKIN: No rash or erythema of visible areas Initial Vital Signs Initial Vital Signs: Vital Signs Pulse Rate 71 09/26/25 10:06 Blood Pressure 133/61 09/26/25 10:06 Pulse Oximetry 99 09/26/25 10:06 <Joaquina Dunaway DO - Last Filed: 09/27/25 09:15> Initial Vital Signs Initial Vital Signs: Vital Signs Pulse Rate 71 09/26/25 10:06 Blood Pressure 133/61 09/26/25 10:06 Pulse Oximetry 99 09/26/25 10:06 Course <Elaine Mullins PA-C - Last Filed: 09/26/25 12:34> Orders Ordered: Discontinued Medications Ketorolac Tromethamine (Ketorolac 30 Mg/Ml Vial) 15 mg IM NOW ONE Stop: 09/26/25 11:31 Last Admin: 09/26/25 11:39 Dose: 15 mg Documented By: ESTEFANI Vital Signs Vital signs: Vital Signs - 8 hr 09/26/25 10:06 09/26/25 10:06 09/26/25 10:24 Temperature 97.7 F Pulse Rate 71 76 Respiratory Rate 17 Blood Pressure 133/61 133/60 Pulse Oximetry 99 100 Oxygen Delivery Method Room Air 09/26/25 10:30 09/26/25 10:30 09/26/25 11:00 Temperature Pulse Rate 61 58 L Respiratory Rate 20 19 Blood Pressure 108/57 L Pulse Oximetry 99 100 Oxygen Delivery Method 09/26/25 11:00 09/26/25 11:30 Temperature Pulse Rate 67 Respiratory Rate 21 Blood Pressure 130/68 Pulse Oximetry 100 Oxygen Delivery Method <Joaquina Dunaway DO - Last Filed: 09/27/25 09:15> Orders Ordered: Discontinued Medications Ketorolac Tromethamine (Ketorolac 30 Mg/Ml Vial) 15 mg IM NOW ONE Stop: 09/26/25 11:31 Last Admin: 09/26/25 11:39 Dose: 15 mg Documented By: ESTEFANI Vital Signs Vital signs: Vital Signs - 8 hr 09/26/25 10:06 09/26/25 10:06 09/26/25 10:24 Temperature 97.7 F Pulse Rate 71 76 Respiratory Rate 17 Blood Pressure 133/61 133/60 Pulse Oximetry 99 100 Oxygen Delivery Method Room Air 09/26/25 10:30 09/26/25 10:30 09/26/25 11:00 Temperature Pulse Rate 61 58 L Respiratory Rate 20 19 Blood Pressure 108/57 L Pulse Oximetry 99 100 Oxygen Delivery Method 09/26/25 11:00 09/26/25 11:30 Temperature Pulse Rate 67 Respiratory Rate 21 Blood Pressure 130/68 Pulse Oximetry 100 Oxygen Delivery Method MDM - Chest Pain <Elaine Mullins PA-C - Last Filed: 09/26/25 12:34> Medical Records Data Attestation: I reviewed the patient's medical records. Imaging Data Ribs X-Ray: Radiologist's Impression: PROCEDURE: XR RIBS RT MIN 3V W CXR 1V INDICATIONS: pain TECHNIQUE: 2 views of the ribs were acquired, along with a single view chest. COMPARISON: None. FINDINGS: Surgical changes and devices: None. Bones and chest wall: There is possible nondisplaced fracture of the lateral right 4th, 5th, and 6th ribs. No suspicious bony lesions. Overlying soft tissues appear unremarkable. Lungs and pleura: No pleural effusions or pneumothorax. Lungs appear clear. Mediastinum: Mediastinal contours appear normal. Heart size is normal. IMPRESSION: Query nondisplaced 4th through 6th lateral right rib fractures. Correlate with point tenderness. Approved by: Crystal Yuen M.D.,Ph.D. on 09/26/2025 at 11:34 [facility] Narrative Medical decision making narrative: 55-year-old female with a past medical history of asthma, hypothyroidism, gastric bypass, GERD who presents to the emergency department for right-sided rib/chest pain x 5 days. Differential diagnosis includes but isn't limited to right costochondritis, rib fracture, pectoral muscle strain, pneumonia, etc. On exam patient is in no acute distress, nontoxic-appearing, all vital signs within normal limits. She does have tenderness to palpation of the right anterior chest wall with no skin changes or color changes. EKG and ribs x-ray obtained in triage. We will treat pain with IM Toradol and avoid opiates in the ED as patient would like to drive herself home but will send a script of hydrocodone to her pharmacy. EKG reveals sinus bradycardia with a rate of 58 beats per minute, QTC of 392, no ST segment elevation. Rib/chest x-ray reveals query nondisplaced 4th through sick lateral right rib fractures. Correlate with point tenderness. Fractures on x-ray are consistent with the location of the patient's pain. Printed discussed results with the patient. This injury did occur almost 1 week ago, considered CT chest however this would not warp changer at this time. Discussed with the patient that she should follow up with her primary care doctor for DEXA bone scan and baseline labs given her history of gastric bypass. Recommended hydrocodone, Tylenol for pain, incentive spirometry, rest, PCP/ortho follow up. Discussed strict ER return precautions. Patient verbalized understanding of all information agreeable with the plan. She is ambulatory and stable for discharge home. Discharge Plan Departure Patient Disposition: Home Clinical Impression: Chest wall injury Qualifiers: Encounter type: initial encounter Qualified Code(s): S29.9XXA - Unspecified injury of thorax, initial encounter Fracture of three ribs, closed Qualifiers: Encounter type: subsequent encounter Laterality: right Fracture healing: with routine healing Qualified Code(s): S22.41XD - Multiple fractures of ribs, right side, subsequent encounter for fracture with routine healing Instructions: DI for Rib Fracture Activity Restrictions/Additional Instructions: Dear Ms. Hauser, Thank you for coming to the emergency department. Today you were evaluated for right-sided chest/rib pain. Your x-ray did reveal fractures of ribs 4 5 and 6. It is very important that you rest, hydrate, use pain medication as prescribed, and use the incentive spirometer to help prevent pneumonia and complications. Please follow up with your primary care doctor for further evaluation I do recommend that you have basic blood work and a DEXA bone scan done in the future. Please return to the emergency department if you develop any new or worsening symptoms such as severe pain, persistent coughing, fevers, chills, flu-like symptoms or any other concerns. Please follow up with your primary care doctor within the next 2-3 days for ER follow-up. (If you do not have a PCP you can call [phone]. ?to schedule an appointment with an [facility] Primary Care Provider) IF YOU DEVELOP ANY NEW OR WORSENING SYMPTOMS, RETURN TO THE ER! Please read the attached instructions, they highlight more specific treatments and interventions for you at home. Thank you for letting me participate in your care, Elaine Mullins PA-C Prescriptions: New hydrocodone-acetaminophen 5-325 mg tablet 1 tab PO Q4-6H PRN (Reason: pain) Qty: 12 0RF No Action buspirone 7.5 mg tablet 7.5 mg PO TID levothyroxine [Synthroid] 50 MCG tablet 50 mcg PO DAILY Qty: 0 albuterol sulfate [ProAir HFA] 90 mcg/actuation HFA aerosol inhaler 2 puff inhalation Q6H PRN (Reason: Shortness Of Breath) alprazolam 0.5 mg tablet 0.5 - 1 mg PO DAILY PRN (Reason: Anxiety) Patient Comments: TK 1 TO 2 TS PO QD PRN ferrous sulfate 325 mg (65 mg iron) tablet 325 mg PO DAILY Patient Comments: TK 1 T PO QD citalopram [Celexa] 40 MG tablet 40 mg PO DAILY Referrals: Octavio Johnson MD [Primary Care Provider, Internal Medicine] Stand Alone Forms: Patient Portal/API, Work Release Note ED Sign-out <Joaquina Dunaway, DO - Last Filed: 09/27/25 09:15> Cosign ED Attending Cosignature Attestation: I was available for consultation. Looked at imaging with PAC. Supportive care. Discussed possibility of CT however initial injury happened multiple days ago she is stable no evidence of pneumothorax she got an incentive spirometer training.
[2025-09-26 11:30] VITALS: PULSE 67; RESP 21; O2SAT 100
[2025-09-26] MEDS: KETOROLAC 30 MG/ML VIAL 15 MG IM (11:39)
== END 2025-09-26 12:54 | disposition home or self-care (01) ==
PROVIDERS: Emergency Provider Physician Assistant; PCP Internal Medicine
DX: S22.41XA Multiple fractures of ribs, right side, initial encounter for closed fracture (principal); S29.9XXA Unspecified injury of thorax, initial encounter; X50.0XXA Overexertion from strenuous movement or load, initial encounter
CPT/HCPCS: 71101; 93005; 99283; J1885